=== PATIENT | female | born 1990 | race Caucasian/White ===

== ENCOUNTER 2019-09-26 15:34 | Emergency (ER) | payer BC, SELFPAY ==
--- NOTE | ~2019-09-26 | CT_ITS ---
EXAMINATION: CTA brain carotid DATE: 09/26/2019 16:54 INDICATION: Dizziness and left-sided headache TECHNIQUE: Computed tomographic angiography (CTA) of the head was performed without and with 100 mL O mnipaque-350 intravenous contrast. CTA of the neck was performed with intravenous contrast. The dose- length product was 1786.38 mGy-cm. Maximum intensity projection and volume rendered 3D-reconstruction s were created by the technologist on a separate workstation. Automated exposure control and iterativ e reconstruction technique were employed. COMPARISON: None. FINDINGS: HEAD CTA: There is no intracranial hemorrhage, acute infarction, or abnormal mass lesion. The ventric les are normal. There is no abnormal mass effect or midline shift. The woods-white matter differentiat ion is normal. The basal cisterns are patent. The orbits are normal. The paranasal sinuses, mastoids and calvarium are normal. There is no significant stenosis of the basilar artery or posterior cerebral arteries. There is no si gnificant stenosis of the intracranial internal carotid arteries or the anterior or middle cerebral a rteries. The anterior communicating artery and posterior communicating arteries are normal. There is no aneurysm. NECK CTA: There are no pathologically enlarged neck lymph nodes. No abnormal enhancement is present i n the neck. There is straightening of the cervical spine which can be positional or due to muscular s pasm. There are mild age-indeterminate compression fractures of T1, T2, and T3. There is 0% stenosis of the proximal right internal carotid artery relative to normal distal artery l umen diameter (NASCET criteria). There is 0% stenosis of the proximal left internal carotid artery re lative to normal distal artery lumen diameter. IMPRESSION: 1. No acute intracranial abnormality. Normal head CTA. 2. 0% stenosis of the proximal right internal carotid artery relative to normal distal artery lumen d iameter (NASCET criteria). 3. 0% stenosis of the proximal left internal carotid artery relative to normal distal artery lumen di ameter. 4. Mild age-indeterminate compression deformities of the upper thoracic spine. Reviewed, dictated and finalized at location A. NESS SYSTEM MANAGER IMPRESSION: 1. No acute intracranial abnormality. Normal head CTA. 2. 0% stenosis of the proximal right internal carotid artery relative to normal distal artery lumen diameter (NASCET criteria). 3. 0% stenosis of the proximal left internal carotid artery relative to normal distal artery lumen diameter. 4. Mild age-indeterminate compression deformities of the upper thoracic spine.
[2019-09-26 15:37] VITALS: BP 136/87; PULSE 82; RESP 20; TEMP 36.3; O2SAT 98
[2019-09-26 16:27] LABS: Basophils Absolute Auto 0.1 K/mm3 (0.0-0.1); Basophils Percent Auto 0.6 % (0.2-1.2); Eosinophils Absolute Auto 0.3 K/mm3 (0-0.3); Eosinophils Percent Auto 2.8 % (0-4.4); Hemoglobin 13.3 g/dL (12.0-15.0); Immature Granulocyte Absolute 0.07 K/mm3 (0.00-0.031); Immature Granulocyte Percent A 0.7 % (0-0.5); Lymphocytes Absolute Auto 2.38 K/mm3 (0.9-3.2); Lymphocytes Percent Auto 24.6 % (18.3-44.2); Mean Corpuscular HGB Conc 32.4 g/dl (32-36); Mean Corpuscular Hemoglobin 30.2 pg (26-34); Mean Corpuscular Volume 93.2 fl (80-100); Mean Platelet Volume 10.1 fl (7.4-10.4); Monocytes Absolute Auto 0.5 K/mm3 (0.1-0.6); Monocytes Percent Auto 5.5 % (2.6-8.5); Neutrophils Absolute Auto 6.4 K/mm3 (1.3-6.7); Neutrophils Percent Auto 65.8 % (45.5-73.1); Platelet Count Result 258 k/mm3 (150-375); Red Cell Distribution Width 13.9 % (11.5-14.5); White Blood Count 9.7 K/mm3 (4.5-10.0)
[2019-09-26 16:36] LABS: INR 0.9; Prothrombin Time 11.6 Seconds (11.1-14.7)
[2019-09-26 16:37] LABS: Partial Thromboplastin Time 28.1 SECONDS (22.3-36.8)
[2019-09-26 16:40] LABS: Add Urine Microscopic? YES; Appearance Urine Cloudy (Clear); Bacteria Urine Trace /hpf; Bilirubin Urine Negative (Negative); Blood Urine Negative (Negative); Color Urine Yellow (Yellow); Glucose Urine UA Negative (Negative); Ketones Urine Negative (Negative); Leukocyte Esterase Ur 1+ LEU/UL (Negative); Mucus Urine Rare /lpf; Nitrate Urine Negative (Negative); Protein Urine Negative (Negative); RBC Urine 0-2 /hpf (0-2); Specific Grav Ur 1.011 (1.001-1.035); Squamous Epithelial Cell Urine Many /hpf (Few); Urobilinogen Urine Negative mg/dL (<2.0); WBC Urine 0-3 /hpf
[2019-09-26 16:44] LABS: Blood Urea Nitrogen 9 mg/dL (8-26); Estimated CRCL calculation 150 ml/min; Estimated Glomerular Filt Rate > 60
--- NOTE | 2019-09-26 16:49 | ED.GENADULT ---
HPI - General Adult General Chief complaint: Headache <LEOBARDO James Last Filed: 09/26/19 17:33> Stated complaint: MIGRAINE <LEOBARDO James Last Filed: 09/26/19 17:33> Time Seen by Provider: 09/26/19 15:57 <LEOBARDO James Last Filed: 09/26/19 17:33> Source: patient <LEOBARDO James Last Filed: 09/26/19 17:33> Mode of arrival: ambulatory <LEOBARDO James Last Filed: 09/26/19 17:33> Limitations: no limitations <LEOBARDO James Last Filed: 09/26/19 17:33> History of Present Illness HPI narrative: Patient is a 29-year-old female who presents to emergency department for evaluation of headache that is bitemporal is been present for the last several days notes that this headache is different than other headaches patient has had headaches since an accident this is different woke the patient from her sleep has been dizzy as well with nausea denies URI symptoms injury or trauma and is otherwise resting comfortably in the room upon arrival in no distress presents per private vehicle is attempted [id number] medications with minimal improvement <LEOBARDO James Last Filed: 09/26/19 17:33> Related Data Allergies/adverse reactions: Allergies Allergy/AdvReac Type Severity Reaction Status Date / Time Penicillins Allergy Severe Anaphylaxis Verified 07/26/19 22:11 <LEOBARDO James Last Filed: 09/26/19 17:33> Review of Systems Review of Systems: Narrative: CONSTITUTIONAL: Denies fever, chills, or sweats. EYES: Denies redness, or discharge. ENT: Denies rhinorrhea, congestion, sore throat, or otalgia. CARDIOVASCULAR: Denies chest pain, palpitations RESPIRATORY: Denies cough or dyspnea. GASTROINTESTINAL: Denies abdominal pain, vomiting, or diarrhea. GENITOURINARY: Denies dysuria or hematuria. SKIN: Denies rash or itching. MUSCULOSKELETAL: Denies back pain, joint pain, or myalgia. NEUROLOGIC: Denies numbness, or weakness. <LEOBARDO James Last Filed: 09/26/19 17:33> PMF Past Medical History Medical History: Medical History Asthma Tobacco dependence <Doyle Chung PA-C - Last Filed: 09/26/19 17:33> Surgical History Surgical History: Surgical History Status post debridement Right inner thigh 1 year ago <Doyle Chung PA-C - Last Filed: 09/26/19 17:33> Social History Social History: Social History Social History: The patient lives in [place] with her fianc?, Payton Fox. She designates Payton as her surrogate decision-maker and she wishes to be a full code. Zuleima works at a [employer]. She has no children. She has smoked half a pack of cigarettes per day for about 10 years. She denies alcohol and drug abuse. Smoking packs per day: 0.5 Smoking cigarettes per day: 10.0 Years smoked: 10 Smoking pack-years: 5.00 Smoking status: Current every day smoker Tobacco type: cigarettes Alcohol intake: never Substance use: never Additional living arrangements comments: Domestic partner Additional occupation/education comments: [employer] Gender identity (if verbalized by the patient): Female Spiritual care concerns: No Agree to blood products: Yes <Doyle Chung PA-C - Last Filed: 09/26/19 17:33> Exam Narrative: Exam Narrative: GENERAL: Well-appearing, obese, and in no acute distress. HEAD: Normocephalic, atraumatic. EYES: PERRLA and EOMI. ENT: Nares clear, no rhinorrhea or epistaxis. Mucous membranes moist. Oropharynx without tonsillar hypertrophy exudate or other lesions. NECK: Supple. No adenopathy or masses. CHEST: Clear to auscultation. No respiratory distress. No wheezes rales or rhonchi HEART: Regular rate and rhythm. No murmur heard. Normal peripher
[2019-09-26 16:50] LABS: Amphetamine Screen Urine Negative (Negative); Barbiturate Screen Urine Negative (Negative); Benzodiazepines Screen Urine Negative (Negative); Cannabinoid Screen Urine Negative (Negative); Cocaine Screen Urine Negative (Negative); Methadone Screen Urine Negative (Negative); Opiate Screen Urine Negative (Negative); Phencyclidine Screen Urine Negative (Negative)
[2019-09-26] MEDS: METOCLOPRAMIDE HCL INJ 10 MG/2 ML VIAL IV PUSH (17:00)
[2019-09-26] MEDS: SODIUM CHLORIDE 0.9% IV 500 ML 999 ML IV CONT (17:00)
[2019-09-26] MEDS: FAMOTIDINE 20 MG/2 ML VIAL IV PUSH (17:00)
[2019-09-26] MEDS: KETOROLAC 30 MG/ML VIAL (*BKC) IV PUSH (17:00)
[2019-09-26] MEDS: MAGNESIUM SULF 2 GM/WATER 50ML 2 GM/50 ML BAG IVPB (17:06)
[2019-09-26 17:42] LABS: Blood Urea Nitrogen 8 mg/dL (7-17); Calcium 8.3 mg/dL (8.4-10.2); Carbon Dioxide 25 mmol/L (22-30); Chloride 104 mmol/L (98-107); Estimated CRCL calculation 177 ml/min; Estimated Glomerular Filt Rate > 60; Glucose 106 mg/dL (65-105); Potassium 3.8 mmol/L (3.4-5.0); Sodium 137 mmol/L (137-145)
[2019-09-26 17:56] VITALS: BP 129/86; PULSE 89; RESP 19; O2SAT 98
== END 2019-09-26 17:57 | disposition home or self-care (01) ==
PROVIDERS: Emergency Medicine Emergency Medical Services; Emergency Provider General Practice
DX: R51 Headache (principal); J45.909 Unspecified asthma, uncomplicated; F17.210 Nicotine dependence, cigarettes, uncomplicated
CPT/HCPCS: 36415; 70496; 70498; 80048; 80307; 81001; 81025; 85025; 85610; 85730; 96365; 96375; 99284; J1885; J2765; J3475; J7040; Q9967

== ENCOUNTER 2019-10-24 18:45 | Inpatient (IN) | payer BC, SELFPAY ==
--- NOTE | ~2019-10-24 | US_ITS ---
US venous doppler [facility] DATE: 10/25/2019 09:57 INDICATION: Right calf pain. Right lower extremity cellulitis. TECHNIQUE: Real-time and color flow imaging and Doppler analysis of the veins of the right lower extr emity COMPARISON: None FINDINGS: The right greater saphenous vein is patent. There is spontaneous and phasic flow and normal augmentation and color flow signal and normal compression of the deep veins of the right lower extre mity. IMPRESSION: No evidence of deep venous thrombosis of right lower extremity Reviewed, dictated and finalized at Location A. Reviewed, dictated and finalized at location A.
--- NOTE | ~2019-10-24 | XR_ITS ---
XR chest 2V DATE: 10/24/2019 20:25 INDICATION: Fever, sepsis TECHNIQUE: PA and lateral views COMPARISON: 02/20/2015 PA and lateral chest FINDINGS: Normal heart size. No hilar or mediastinal enlargement. No pulmonary infiltrate or consolid ation, pleural effusion or pulmonary vascular congestion or pneumothorax. Included skeletal structure s are unremarkable. IMPRESSION: Negative Reviewed, dictated and finalized at location A. IMPRESSION: Negative
[2019-10-24 18:56] VITALS: BP 141/82; PULSE 117; RESP 30; TEMP 37.4; O2SAT 100
--- NOTE | 2019-10-24 19:13 | ED_ITS ---
I attest that this documentation has been prepared under the direction and in the presence of Britany Pearson MD. Kyle FosterKristie 10/24/19;19:19 HPI - Extremity Injury (Lower) General Chief Complaint: Extremity Problem,Nontraumatic Stated Complaint: R LEG INFECTION, HX OF SEPSIS Time Seen by Provider: 10/24/19 19:09 History of Present Illness HPI Narrative: A 29 y/o female presents the ED with severe, burning, RLE pain beginning at 3:30 PM this afternoon. She states that she has a hx of BERGMAN, ear ache, rt hip pain, fever, chills, nausea, sweats, rash third time happening started 3:30 PM today last time was 2 months ago sepsis was admitted for 7 days no leg swelling, vomiting, SOB smokes 4 cigs a day healthy, surgery on RLE tachy, erythema from just aboe the ankle splotchy tender warm to mid thigh Related Data Allergies Allergy/AdvReac Type Severity Reaction Status Date / Time Penicillins Allergy Severe Anaphylaxis Verified 07/26/19 22:11 [facility] Social History Social History Social History: The patient lives in [place] with her fianc?, Payton Fox. She designates Payton as her surrogate decision-maker and she wishes to be a full code. Zuleima works at a [employer]. She has no children. She has smoked half a pack of cigarettes per day for about 10 years. She denies alcohol and drug abuse. Smoking packs per day: 0.5 Smoking cigarettes per day: 10.0 Years smoked: 10 Smoking pack-years: 5.00 Smoking status: Current every day smoker Tobacco type: cigarettes Alcohol intake: never Substance use: never Additional living arrangements comments: Domestic partner Additional occupation/education comments: [employer] Gender identity (if verbalized by the patient): Female Spiritual care concerns: No Agree to blood products: Yes Course Vital Signs Vital signs: Vital Signs Temperature 99.4 F 10/24/19 18:56 Pulse Rate 117 H 10/24/19 18:56 Respiratory Rate 30 H 10/24/19 18:56 Blood Pressure 141/82 H 10/24/19 18:56 Pulse Oximetry 100 10/24/19 18:56 Temperature 99.4 F 10/24/19 18:56 Pulse Rate 117 H 10/24/19 18:56 Respiratory Rate 30 H 10/24/19 18:56 Blood Pressure 141/82 H 10/24/19 18:56 Pulse Oximetry 100 10/24/19 18:56 Discharge Plan Discharge Prescriptions: No Action ibuprofen [IBU] 600 mg tablet 600 mg PO TID PRN (Reason: fever or pain) Qty: 7 RF: 0 ondansetron 4 mg tablet,disintegrating 4 mg PO Q6H PRN (Reason: nausea and vomiting) Qty: 7 RF: 0
--- NOTE | 2019-10-24 19:21 | ED.EXTPRO ---
HPI - Extremity Problem General Chief complaint: Extremity Problem,Nontraumatic Stated complaint: R LEG INFECTION, HX OF SEPSIS Time Seen by Provider: 10/24/19 19:09 Source: patient and RN notes reviewed Mode of arrival: ambulatory Limitations: no limitations History of Present Illness HPI Narrative: A 29 y/o female presents the ED with severe, constant, burning, RLE pain beginning at 3:30 PM this afternoon. She states that she has a hx of cellulites in her RLE that has caused sepsis, which she was admitted for roughly 2 months ago. She reports an associated RLE rash, BERGMAN, ear ache, rt hip pain, a subjective fever, chills, nausea, and sweats. She denies any leg swelling, vomiting, and SOB. MD Complaint: extremity pain Onset (ago): hour(s) (3.5) Pain Consistency: constant Location: right and lower extremity Quality: burning Associated symptoms: fever (subjective), rash and other (BERGMAN, ear ache, rt hip pain, chills, nausea, and sweats) Related Data Allergies Allergy/AdvReac Type Severity Reaction Status Date / Time Penicillins Allergy Severe Anaphylaxis Verified 10/24/19 20:46 Review of Systems Review of Systems: All systems reviewed & are unremarkable except as noted in HPI and below Constitutional: Constitutional: Reports chills, Reports fever(s) (subjective) and Reports other (sweats) ENT: Reports otalgia Cardiovascular: Cardiovascular: Denies leg edema Respiratory: Respiratory: Denies dyspnea Gastrointestinal: Gastrointestinal: Reports nausea and Denies vomiting Musculoskeletal: Musculoskeletal: Reports arthralgias (rt hip) and Reports other (RLE pain) Integumentary/Breasts: Skin/Breast: Reports rash Neurologic: Reports headache(s) [facility] Past Medical History Medical History Asthma Tobacco dependence Surgical History Surgical History Status post debridement Right inner thigh 1 year ago Family History Family History Mother Hypertension Social History Social History (Updated 10/24/19 @ 19:38 by Kyle Foster) Social History: The patient lives in [place] with her fianc?, Payton Fox. She designates Payton as her surrogate decision-maker and she wishes to be a full code. Zuleima works at a local [employer]. She has no children. She has smoked half a pack of cigarettes per day for about 10 years. She denies alcohol and drug abuse. Years smoked: 10 Smoking status: Current every day smoker Tobacco type: cigarettes Alcohol intake: never Substance use: never Additional living arrangements comments: Domestic partner Additional occupation/education comments: [employer] Gender identity (if verbalized by the patient): Female Spiritual care concerns: No Agree to blood products: Yes Exam Const: General: cooperative, no acute distress and alert Nutritional Appearance: obese Orientation/consciousness: patient oriented x3 Limitations: no limitations HENMT: Mouth: Yes lip normal and Yes moist mucous membranes Resp: Effort & Inspection: normal respiratory effort Auscultation: clear to auscultation bilaterally Cardio: Rate: tachycardic Rhythm: regular rhythm GI: GI Palp: Yes Soft to palpation and No Tenderness to palpation present (GI) Auscultation: normal bowel sounds Skin: General skin exam: other (erythema from just above the ankle splotchy tender warm to mid thigh) Neuro: General: patient oriented x3 Cognition (Neuro): normal cognition Speech: normal speech Extrem: General: normal to inspection, full ROM and no clubbing, cyanosis or edema Psych: Mental Status: mental status grossly normal Affect: normal affect Attitude: cooperative Course Course Emergency Course: Patient with findings of sepsis secondary to right lower extremity cellulitis. Patient with 2 prior hospitalizations for the same in the past year. Patient had been seen by
[2019-10-24] MEDS: LACTATED RINGERS 1,000 ML 999 ML IV CONT (20:00)
[2019-10-24 20:12] LABS: Hematocrit 41.1 % (37.0-47.0); Hemoglobin 13.1 g/dL (12.0-15.0); Mean Corpuscular HGB Conc 31.9 g/dl (32-36); Mean Corpuscular Volume 94.1 fl (80-100); Mean Platelet Volume 10.1 fl (7.4-10.4); Platelet Count Result 236 k/mm3 (150-375); Red Blood Count 4.37 M/mm3 (4.2-5.4); Red Cell Distribution Width 14.3 % (11.5-14.5); White Blood Count 22.7 K/mm3 (4.5-10.0)
[2019-10-24 20:18] LABS: Add Urine Microscopic? YES; Appearance Urine Clear (Clear); Bacteria Urine Trace /hpf; Bilirubin Urine Negative (Negative); Blood Urine 3+ (Negative); Color Urine Yellow (Yellow); Glucose Urine UA Negative (Negative); Ketones Urine Negative (Negative); Leukocyte Esterase Ur Negative LEU/UL (Negative); Nitrate Urine Negative (Negative); Protein Urine Negative (Negative); Specific Grav Ur 1.015 (1.001-1.035); Squamous Epithelial Cell Urine Many /hpf (Few); Urobilinogen Urine Negative mg/dL (<2.0); WBC Urine 0-3 /hpf
[2019-10-24 20:19] VITALS: BP 128/73; PULSE 106; RESP 22; TEMP 39.3; O2SAT 100
[2019-10-24 20:21] LABS: INR 0.9; Prothrombin Time 12.1 Seconds (11.1-14.7)
[2019-10-24 20:24] LABS: Lactic Acid Reflex 1.3 mmol/L (0.7-2.1)
[2019-10-24 20:28] LABS: Alanine Aminotransferase 25 U/L (4-35); Alkaline Phosphatase 65 U/L (38-126); Aspartate Amino Transferase 27 U/L (14-36); Band Neutrophils Percent 10 % (0-6); Bilirubin,Total 0.5 mg/dL (0.2-1.3); Blood Urea Nitrogen 12 mg/dL (7-17); CRP 2.3 mg/dL (<1.0); Carbon Dioxide 26 mmol/L (22-30); Chloride 100 mmol/L (98-107); Estimated Glomerular Filt Rate > 60; Glucose 111 mg/dL (65-105); Lymphocytes Absolute Manual 0.68 K/mm3 (1.1-4.5); Monocytes Absolute Manual 1.13 K/mm3 (0.1-0.90); Monocytes Percent Manual 5 % (3-9); Neutrophils Absolute Manual 20.88 K/mm3 (1.7-7.2); Neutrophils Percent Manual 82 % (46-73); Platelet Estimate Adequate (Adequate); Potassium 4.2 mmol/L (3.4-5.0); Sodium 134 mmol/L (137-145); Total Cells Counted 100
[2019-10-24] MEDS: KETOROLAC 30 MG/ML VIAL (*BKC) IV PUSH (20:41)
[2019-10-24] MEDS: ACETAMINOPHEN 500 MG TABLET 1000 MG PO (20:41)
--- NOTE | 2019-10-24 21:02 | PC.NURSE ---
pts mother on phone. pt states mother is raging alcoholic asked pt what RN can communicate w/ mother. pt states not to talk to her. rn asked if she can inform her that we cannot transfer her w/ out pt's consent. pt verbalized that rn can say that. pt also told RN to tell her mother to Shut her mouth. Rn spoke w/ pts mothers told her that we cannot transfer pt to [facility] without patients consent and she can talk w/ her daughter about any other questions.
[2019-10-24 21:06] VITALS: BP 122/88; PULSE 120; RESP 16; TEMP 37.5; O2SAT 97
--- NOTE | 2019-10-24 21:24 | PM.IMHP ---
H&P: HPI History of Present Illness Chief complaint: Sepsis, RLE Cellulitis Narrative: A 29 year old female who has a history significant for recurrent cellulitis of her right lower extremity and presented to the hospital tonight with redness and pain of her RLE that started around 3:30 pm this afternoon. She denies any trauma or other wounds to her RLE. She has a history of a right proximal thigh wound which she obtained due to an accident which healed about 1 year ago and required a wound vac at that time. Associated symptoms tonight include nausea, fever, headache, body aches and loose stools. She denies any significant cough but she has had mild shortness of breath. She has no history of MRSA. The patient's RLE redness extends from her right ankle up to her knee and then up her proximal thigh over her previous wound. The patient denies any history of diabetes mellitus. She was found to be septic in the ER tonight with tachycardia, tachypnea, leukocytosis and fever. The patient has been started on Ancef IV in the ER tonight. She has no other complaints. Review of Systems Review of Systems: All systems reviewed & are unremarkable except as noted in HPI and below PMFSH Past Medical History Medical History Asthma Tobacco dependence Surgical History Surgical History Status post debridement Right inner thigh 1 year ago Family History Family History Mother Hypertension Social History Social History Social History: The patient lives in [place] with her fianc?, Payton Fox. She designates Payton as her surrogate decision-maker and she wishes to be a full code. Zuleima works at a local [employer]. She has no children. She has smoked half a pack of cigarettes per day for about 10 years. She denies alcohol and drug abuse. Years smoked: 10 Smoking status: Current every day smoker Tobacco type: cigarettes Alcohol intake: never Substance use: never Substance use type: does not use Additional living arrangements comments: Domestic partner Additional occupation/education comments: [employer] Gender identity (if verbalized by the patient): Female Spiritual care concerns: No Agree to blood products: Yes Meds Home Medications and Allergies Home Medications Medication Instructions Recorded Confirmed Type ibuprofen [IBU] 600 mg PO TID PRN #7 tablet 09/26/19 10/24/19 Rx Allergies Allergy/AdvReac Type Severity Reaction Status Date / Time Penicillins Allergy Severe Anaphylaxis Verified 10/24/19 20:46 Vital Signs Vital Signs - 24 hr 10/24/19 18:56 10/24/19 20:19 10/24/19 21:06 Temperature 37.4 C 39.3 C H 37.5 C Pulse Rate 117 H 106 H 120 H Respiratory Rate 30 H 22 H 16 Blood Pressure 141/82 H 128/73 122/88 Pulse Oximetry 100 100 97 Exam Const: General: cooperative, alert, awake and other (febrile to touch+++ ) Nutritional Appearance: obese morbidly obese Orientation/consciousness: patient oriented x3 HENMT: Head: normal to inspection General nose exam: Normal external nose present Face and sinus: normal facial exam Mouth: Yes Normal oral and palatal mucosa present and Yes oropharynx normal Eyes: Pupils: Equal, round and reactive pupils present EOM: EOMs intact bilaterally Neck: Neck: supple and no JVD Thyroid: thyroid normal Lymphatic: lymphadenopathy not noted Resp: Effort & Inspection: normal respiratory effort Auscultation: clear to auscultation bilaterally Cardio: Rate: tachycardic Rhythm: regular rhythm Heart sounds: no murmurs GI: Inspection: normal to inspection Auscultation: normal bowel sounds Skin: General skin exam: erythema (extending from right ankle up to her knee and the proximal aspect of thigh+) and scars (Right medial thigh
[2019-10-24] MEDS: MORPHINE SULFATE 2 MG/ML INJ IV PUSH (21:28)
[2019-10-24 21:30] VITALS: BP 129/77; PULSE 107; RESP 19; TEMP 37.4; O2SAT 98
--- NOTE | 2019-10-24 21:42 | ADMGEN ---
This patient, Angelika Hendricks, was admitted to 2 Medical Room 241-. Patient/family oriented to hospital policies and general routines including ID bracelet, bed and alarms, visiting hours, pain management, procedures, bathroom and other care routines, personal items, smoking policy, room service/diet, and visiting hours. Valuables list has been completed. Information on how to activate the Rapid Response Team has been discussed. Patient/Family are encouraged to report perceived risks to care and to ask questions if they do not understand what they are told or what they should do.
[2019-10-24] MEDS: LACTATED RINGERS 1,000 ML 150 ML IV CONT (21:51)
[2019-10-24 22:00] VITALS: BP 117/56; PULSE 98; RESP 20; TEMP 36.2; O2SAT 97; BMI 51.7
[2019-10-25] MEDS: LACTATED RINGERS 1,000 ML 150 ML IV CONT ×3 (04:38→19:44)
[2019-10-25] MEDS: IBUPROFEN 400 MG TABLET PO (05:23)
[2019-10-25 05:26] LABS: Basophils Percent Auto 0.2 % (0.2-1.2); Eosinophils Percent Auto 0.1 % (0-4.4); Hematocrit 37.4 % (37.0-47.0); Hemoglobin 11.9 g/dL (12.0-15.0); Immature Granulocyte Absolute 0.14 K/mm3 (0.00-0.031); Immature Granulocyte Percent A 0.7 % (0-0.5); Lymphocytes Absolute Auto 0.96 K/mm3 (0.9-3.2); Lymphocytes Percent Auto 5.1 % (18.3-44.2); Mean Corpuscular HGB Conc 31.8 g/dl (32-36); Mean Corpuscular Hemoglobin 30.4 pg (26-34); Mean Corpuscular Volume 95.4 fl (80-100); Mean Platelet Volume 10.3 fl (7.4-10.4); Monocytes Absolute Auto 0.6 K/mm3 (0.1-0.6); Monocytes Percent Auto 3.3 % (2.6-8.5); Neutrophils Percent Auto 90.6 % (45.5-73.1); Platelet Count Result 194 k/mm3 (150-375); Red Blood Count 3.92 M/mm3 (4.2-5.4); Red Cell Distribution Width 14.6 % (11.5-14.5); White Blood Count 18.8 K/mm3 (4.5-10.0)
[2019-10-25 05:47] LABS: Blood Urea Nitrogen 16 mg/dL (7-17); Calcium 8.5 mg/dL (8.4-10.2); Carbon Dioxide 28 mmol/L (22-30); Chloride 104 mmol/L (98-107); Estimated CRCL calculation 151 ml/min; Estimated Glomerular Filt Rate > 60; Glucose 103 mg/dL (65-105); Potassium 3.7 mmol/L (3.4-5.0); Sodium 134 mmol/L (137-145)
[2019-10-25 06:00] VITALS: BP 119/59; PULSE 90; RESP 20; TEMP 36.3; O2SAT 98
[2019-10-25 07:18] LABS: Hemoglobin A1C 5.1 % (<5.7)
--- NOTE | 2019-10-25 08:22 | PC.NURSE ---
Acting on Dr. Swenson's order. Pain medication was administered at 0708. Order before medication could be saved into emar.
--- NOTE | 2019-10-25 09:00 | PM.IMPN ---
Progress Note: A&P Assessment and Plan (1) Cellulitis of right leg: Code(s): L03.115 - Cellulitis of right lower limb Status: Acute Assessment and Plan: Patient has recurrent right LE cellulitis. Non-diabetic as A1c 5.1 today. ID consulted and appreciate recommendations. Area of concern slightly extending outside area of demarcation in few areas, otherwise seems to be contained within the area. VSS improving this morning. WBC down to 18.8k today. Continue with antipyretics and antiemetics as needed Continue with IV ancef for now IVF at 150 mL/hr for now; consider slowing Further recommendations per ID Venous doppler to r/o DVT today; still yet to be done BC pending Monitor for improvement (2) Sepsis: Qualifiers: Sepsis acute organ dysfunction status: without acute organ dysfunction Sepsis type: sepsis due to unspecified organism Qualified Code(s): A41.9 - Sepsis, unspecified organism Code(s): A41.9 - Sepsis, unspecified organism Status: Acute Assessment and Plan: w/ Tachycardia, tachypnea, fever, and leukocytosis upon presentation. Source of sepsis appears to be skin. VSS, leukocytosis, fever improving. Monitor vital signs and urine output closely. Blood cultures pending. Continue IV antibiotics for Cellulitis (3) Leukocytosis: Qualifiers: Leukocytosis type: unspecified Qualified Code(s): D72.829 - Elevated white blood cell count, unspecified Code(s): D72.829 - Elevated white blood cell count, unspecified Status: Acute Assessment and Plan: secondary to sepsis and cellulitis. This has improved overnight Monitor CBCd. (4) Tobacco dependence: Code(s): F17.200 - Nicotine dependence, unspecified, uncomplicated Status: Chronic Assessment and Plan: She does not desire a nicotine patch at this time. Provide nicotine patch if desired Subjective Date/time seen: 10/25/19 09:00 Interval history: Patient is a 29 yo F with history of recurrent cellulitis of her right lower extremity who is here for treatment for sepsis with cellulitis as likely source of infection. Patient states she is still in some right upper/lower leg pain today particularly when ambulating. She feels her calf is tight from swelling. She had sweats last night; possible subjective fever. She noted her right ankle hurt 1-2 days prior to coming into the hospital, but this has resolved; no redness/swelling in the right ankle joint. Patient otherwise has no other complaints. Denies headaches, dizziness, lightheadedness, changes in v/h, cp/palpitations, sob/cough, n/v/d/c, abd pain, dysphagia, melena, brbpr, dysuria, hematuria, cloudy urine. Review of Systems Review of Systems: All systems reviewed & are unremarkable except as noted in HPI and below Exam Narrative: Exam Narrative: Patient sitting upright in bed a time of visit. SO is in room visiting Const: General: cooperative, comfortable, no acute distress, well developed, alert and awake Nutritional Appearance: obese morbidly obese Orientation/consciousness: patient oriented x3 HENMT: Head: normocephalic and atraumatic General nose exam: Normal external nose present and Normal nares present Face and sinus: face symmetric Mouth: Yes lip normal and Yes moist mucous membranes Teeth and gingiva: dentition normal Throat: posterior oropharynx normal and uvula midline Eyes: General: appearance normal, both eyes and all related structures Sclera: sclerae normal Pupils: Equal, round and reactive pupils present EOM: EOMs intact bilaterally Neck: Neck: trachea midline and supple Resp: Effort & Inspection: normal respiratory effort Auscultation: clear to auscultation bilaterally Cardio: Rate: regular rate Rhythm: regular rhythm Heart sounds: no mur
[2019-10-25] MEDS: ENOXAPARIN 40 MG/0.4 ML SYRINGE SUB-Q (09:12)
[2019-10-25 14:00] VITALS: BP 107/72; PULSE 65; RESP 16; TEMP 35.7; O2SAT 100
[2019-10-25 22:00] VITALS: BP 112/67; PULSE 76; RESP 20; TEMP 36; O2SAT 99
[2019-10-26] MEDS: LACTATED RINGERS 1,000 ML 150 ML IV CONT ×2 (03:06→09:29)
[2019-10-26 05:46] LABS: Basophils Percent Auto 0.4 % (0.2-1.2); Eosinophils Absolute Auto 0.3 K/mm3 (0-0.3); Eosinophils Percent Auto 3.9 % (0-4.4); Hematocrit 35.3 % (37.0-47.0); Hemoglobin 11.4 g/dL (12.0-15.0); Immature Granulocyte Absolute 0.08 K/mm3 (0.00-0.031); Lymphocytes Absolute Auto 2.05 K/mm3 (0.9-3.2); Mean Corpuscular HGB Conc 32.3 g/dl (32-36); Mean Corpuscular Hemoglobin 30.3 pg (26-34); Mean Corpuscular Volume 93.9 fl (80-100); Mean Platelet Volume 10.4 fl (7.4-10.4); Monocytes Absolute Auto 0.7 K/mm3 (0.1-0.6); Monocytes Percent Auto 8.9 % (2.6-8.5); Neutrophils Percent Auto 60.8 % (45.5-73.1); Platelet Count Result 186 k/mm3 (150-375); Red Blood Count 3.76 M/mm3 (4.2-5.4); Red Cell Distribution Width 14.4 % (11.5-14.5); White Blood Count 8.2 K/mm3 (4.5-10.0)
[2019-10-26 05:50] LABS: Blood Urea Nitrogen 10 mg/dL (7-17); Calcium 8.1 mg/dL (8.4-10.2); Carbon Dioxide 26 mmol/L (22-30); Chloride 107 mmol/L (98-107); Estimated CRCL calculation 205 ml/min; Estimated Glomerular Filt Rate > 60; Glucose 99 mg/dL (65-105); Magnesium 1.8 mg/dL (1.6-2.3); Potassium 4.1 mmol/L (3.4-5.0); Sodium 136 mmol/L (137-145)
[2019-10-26 06:00] VITALS: BP 111/72; PULSE 68; RESP 20; TEMP 36.3; O2SAT 99
[2019-10-26 08:00] VITALS: PULSE 68; RESP 20; O2SAT 99
[2019-10-26] MEDS: ENOXAPARIN 40 MG/0.4 ML SYRINGE SUB-Q (09:28)
--- NOTE | 2019-10-26 12:49 | PM.IMPN ---
Progress Note: A&P Assessment and Plan (1) Cellulitis of right leg: Code(s): L03.115 - Cellulitis of right lower limb Status: Acute Assessment and Plan: Patient has recurrent right LE cellulitis. Non-diabetic as A1c 5.1 today. ID consulted and appreciate recommendations. VSS stable this morning. WBC down to normal at 8.2 k today. Continue with antipyretics and antiemetics as needed Continue with IV ancef for now Discontinue IV fluids. Further recommendations per ID Venous doppler showed no evidence of deep venous thrombosis of right lower extremity BC pending Monitor for improvement (2) Sepsis: Qualifiers: Sepsis acute organ dysfunction status: without acute organ dysfunction Sepsis type: sepsis due to unspecified organism Qualified Code(s): A41.9 - Sepsis, unspecified organism Code(s): A41.9 - Sepsis, unspecified organism Status: Acute Assessment and Plan: w/ Tachycardia, tachypnea, fever, and leukocytosis upon presentation. Source of sepsis appears to be skin. VS stable, leukocytosis normalized, fever improving. Monitor vital signs and urine output closely. Blood cultures pending. Continue IV antibiotics for Cellulitis (3) Leukocytosis: Qualifiers: Leukocytosis type: unspecified Qualified Code(s): D72.829 - Elevated white blood cell count, unspecified Code(s): D72.829 - Elevated white blood cell count, unspecified Status: Acute Assessment and Plan: Secondary to sepsis and cellulitis. Normalized today. Monitor CBCd. (4) Tobacco dependence: Code(s): F17.200 - Nicotine dependence, unspecified, uncomplicated Status: Chronic Assessment and Plan: She does not desire a nicotine patch at this time. Provide nicotine patch if desired Time Spent With Patient Time with patient: 25 - 35 minutes Subjective Date/time seen: 10/26/19 12:49 Interval history: Patient is a 29 yo F with history of recurrent cellulitis of her right lower extremity who is here for treatment for sepsis with cellulitis as likely source of infection. Date of service 10/26/2019: She is feeling better today. She reports her redness is improved to distal right leg and medial thigh but it is still warm and tender to touch. Denies any fever, chills, chest pain, shortness of breath, cough, nausea, vomiting, abdominal pain, constipation, leg swelling, calf pain or any other symptoms at this time. Review of Systems Review of Systems: All systems reviewed & are unremarkable except as noted in HPI and below Exam Narrative: Exam Narrative: General: 29-year-old woman sitting up in bed watching TV. Appears comfortable. In no acute distress. Skin: See lower extremity. No jaundice or cyanosis. Good skin turgor. Neck: Full range of motion. Supple. Respiratory: Lungs are clear to auscultation bilaterally. No bony chest wall tenderness. Cardiovascular: The heart has a regular rate and rhythm without murmur. Lower extremities: Right anterior distal lower extremity with slight erythema improved from prior pen line on arrival. Right medial thigh with scarring noted with warmth, erythema noted with improved markings from prior pen line on arrival. No lower extremity edema. Distal pulses are easily palpated. No calf tenderness to palpation. Gastrointestinal: The abdomen is soft, nontender and nondistended with active bowel sounds. Psychiatric: Lucid and oriented. Memory intact. Neurologic: No focal deficits. Speech is clear. No facial drooping. Objective Data Vital Signs Vital Signs: Vital Signs - 24 hr 10/25/19 14:00 10/25/19 22:00 10/26/19 06:00 Temperature 96.2 F L 96.8 F L 97.3 F L Pulse Rate 65 76 68 Respiratory Rate 16 20 20 Blood Pressure 107/72 112/67 111/72 Pulse Oximet
[2019-10-26 14:00] VITALS: BP 124/65; PULSE 70; RESP 18; TEMP 36.5; O2SAT 100
--- NOTE | 2019-10-26 17:38 | WPDINFPN2 ---
Progress Note: A&P Assessment and Plan (1) Cellulitis: Qualifiers: Laterality: right Site of cellulitis: extremity Site of cellulitis of extremity: lower extremity Qualified Code(s): L03.115 - Cellulitis of right lower limb Code(s): L03.90 - Cellulitis, unspecified Status: Acute Assessment and Plan: Recurrent cellulitis RLE REC Ancef until AM 10/26, then cephalexin 1 gram q6hr x 8 days. Then she should keep a reserve supply of cephalexin 500 q6hr, #28, to take at the first symptom of recurrent cellulitis. Subjective Date/time seen: 10/26/19 17:38 Objective Data Vital Signs Vital Signs: Vital Signs - 24 hr 10/25/19 22:00 10/26/19 06:00 10/26/19 08:00 Temperature 36.0 C L 36.3 C L Pulse Rate 76 68 68 Respiratory Rate 20 20 20 Blood Pressure 112/67 111/72 Pulse Oximetry 99 99 99 10/26/19 14:00 Temperature 36.5 C Pulse Rate 70 Respiratory Rate 18 Blood Pressure 124/65 Pulse Oximetry 100 Intake/Output Intake/Output: Intake & Output 10/23/19 10/24/19 10/25/19 10/26/19 23:59 23:59 23:59 23:59 Intake Total 1050 5250 3820 Output Total 704 1800 Balance 1050 4546 2020 Meds/Results Medications: Active Medications Generic Name Dose Route Start Last Admin Trade Name Freq PRN Reason Stop Dose Admin Acetaminophen 1,000 mg 10/25/19 09:05 Tylenol Tablet PO Q6H PRN Pain Rated 4-6 Acetaminophen 650 mg 10/25/19 09:05 Tylenol Tablet PO Q6H PRN Pain Rated 1-3 Hydrocodone Bitart/Acetaminophen 1 tab 10/25/19 09:02 10/26/19 10:08 [place] 5-325 Mg PO 1 tab Q6H PRN Administration Pain Rated 7-10 Enoxaparin Sodium 40 mg 10/25/19 09:00 10/26/19 09:28 Lovenox SUB-Q 40 mg DAILY POONAM Administration Cefazolin Sodium 1 gm in 50 mls @ 100 mls/hr 10/25/19 06:00 10/26/19 14:52 Ancef 1 Gm/D5w 50 Ml Pm IVPB Infused Q8HR POONAM Infusion Radiology Results: ITS Impressions Chest X-Ray 10/24/19 20:35 IMPRESSION: Negative Venous Doppler Study 10/25/19 10:41 IMPRESSION: No evidence of deep venous thrombosis of right lower extremity Labs Labs: Laboratory Results - last 24 hr 10/26/19 10/26/19 04:50 04:50 WBC 8.2 RBC 3.76 L Hgb 11.4 L Hct 35.3 L MCV 93.9 MCH 30.3 MCHC 32.3 RDW 14.4 Plt Count 186 MPV 10.4 Immature Gran % (Auto) 1.0 H Neut % (Auto) 60.8 Lymph % (Auto) 25.0 Day % (Auto) 8.9 H Eos % (Auto) 3.9 Baso % (Auto) 0.4 Lymph # (Auto) 2.05 Day # (Auto) 0.7 H Eos # (Auto) 0.3 Baso # (Auto) 0.0 Abs Immat Gran (auto) 0.08 H Absolute Neuts (auto) 5.0 Absolute Nucleated RBC 0.0 Nucleated RBC % 0.0 Sodium 136 L Potassium 4.1 Chloride 107 Carbon Dioxide 26 BUN 10 D Creatinine 0.50 L Estim Creat Clear Calc 205 Estimated GFR > 60 Glucose 99 Calcium 8.1 L Magnesium 1.8
--- NOTE | 2019-10-26 18:46 | CONS_ITS ---
DATE OF CONSULTATION: 10/26/2019 REASON FOR CONSULTATION: Right leg cellulitis. HISTORY OF PRESENT ILLNESS: The patient is a 29-year-old female known to me from July when she had right leg cellulitis. She was treated accordingly with success. She has had no intervening episodes until the day of admission when she developed recurrent pain and redness in the mid right buchanan without any trauma. Within 20 minutes, the redness began to spread up the leg, into the thigh and she had hip pain concurrently. She presented to the emergency room and was admitted on the . She has been on Ancef and consultation requested. The patient has had full resolution in hip pain, leg pain and redness are also much improved subjectively. No recent antibiotics otherwise. ALLERGIES: PENICILLIN CAUSES ANAPHYLAXIS. SHE TOLERATES CEPHALEXIN. HABITS: Half narc-eve-qwc smoker. PRESENT MEDICATIONS: No immunosuppressants. PAST MEDICAL HISTORY: She has had previous right thigh debridement surgery. She has morbid obesity. No other chronic medical illnesses. FAMILY HISTORY: Not pertinent to her present illness. SOCIAL HISTORY: Works at [employer]. She is in a same sex relationship with her fiancee, and lives locally. REVIEW OF SYSTEMS: Respiratory, skin, musculoskeletal, constitutional, GI otherwise negative. PHYSICAL EXAMINATION: GENERAL: This is a young female appears her actual age. No acute distress. VITAL SIGNS: Temperature is 39.3 on admission, afebrile since, 124/65, 70, 18, 100% room air. SKIN: Warm and dry. EENT: Conjunctivae are normal. Oral mucosa is also normal. LUNGS: Clear to auscultation and percussion. CARDIAC: Regular rate and rhythm. No murmur, gallop, or rub. Pulses are 2+. ABDOMEN: Obese, nontender, nondistended. EXTREMITIES: No upper extremity edema. On the lower extremity, she has erythema that is outlined over the buchanan and a separate area over the thigh. The erythema is nearly resolved. There is no warmth, no tenderness. She has a surgical scar in the right thigh, but no other abnormal contours. LABORATORY DATA: Blood cultures, October 23, no growth after 2 days incubation. previous admission July as well. White blood cell count on admission was 22.7, then 18.8, now 8.2, hemoglobin 11.4, and platelets are 186. Her differential is normal. Chemistry panel normal except for mild hyponatremia. CRP 2.3. Her urinalysis no evidence of infection. RADIOLOGY: Venous Doppler, no DVT. ASSESSMENT: 1. Recurrent right leg cellulitis, suspect streptococcal in nature, she may have some vascular venous insufficiency responsible. Obesity is also contributing. She has no diabetes. 2. Previous debridement surgery. 3. Morbid obesity. RECOMMENDATIONS: Continue Ancef until a.m. and if no new clinical findings and to be switched to cephalexin 1 g q.6 hours x8 additional days. I would then place on a reserve supply of cephalexin 500 mg every 6 hours to take at the first symptom of recurrent infection. This would be an attempt to decrease need for hospitalizations and emergency room visits. We also considered chronic suppression, but I would not use this at present time. Thank you very much for asking me to see her. SHEREEN WHITNEY M.D. [employer] INST[employer]ER TILE AND [employer]BLE INSTALLER D I MT: Kaveh
[2019-10-26 21:55] VITALS: BP 126/81; PULSE 73; RESP 16; TEMP 35.9; O2SAT 100
[2019-10-27 05:37] LABS: Basophils Percent Auto 0.5 % (0.2-1.2); Eosinophils Absolute Auto 0.3 K/mm3 (0-0.3); Eosinophils Percent Auto 3.2 % (0-4.4); Hematocrit 38.2 % (37.0-47.0); Hemoglobin 12.1 g/dL (12.0-15.0); Immature Granulocyte Absolute 0.13 K/mm3 (0.00-0.031); Immature Granulocyte Percent A 1.6 % (0-0.5); Lymphocytes Absolute Auto 2.27 K/mm3 (0.9-3.2); Mean Corpuscular HGB Conc 31.7 g/dl (32-36); Mean Corpuscular Hemoglobin 30.3 pg (26-34); Mean Corpuscular Volume 95.5 fl (80-100); Mean Platelet Volume 10.3 fl (7.4-10.4); Monocytes Absolute Auto 0.6 K/mm3 (0.1-0.6); Monocytes Percent Auto 7.1 % (2.6-8.5); Neutrophils Absolute Auto 4.8 K/mm3 (1.3-6.7); Neutrophils Percent Auto 59.6 % (45.5-73.1); Platelet Count Result 227 k/mm3 (150-375); Red Cell Distribution Width 14.4 % (11.5-14.5); White Blood Count 8.1 K/mm3 (4.5-10.0)
[2019-10-27 05:56] LABS: Blood Urea Nitrogen 11 mg/dL (7-17); Calcium 8.6 mg/dL (8.4-10.2); Carbon Dioxide 28 mmol/L (22-30); Chloride 106 mmol/L (98-107); Estimated CRCL calculation 174 ml/min; Estimated Glomerular Filt Rate > 60; Glucose 100 mg/dL (65-105); Sodium 137 mmol/L (137-145)
[2019-10-27 06:00] VITALS: BP 137/64; PULSE 65; RESP 16; TEMP 35.6; O2SAT 98
[2019-10-27 08:00] VITALS: PULSE 65; RESP 16; O2SAT 98
[2019-10-27] MEDS: ENOXAPARIN 40 MG/0.4 ML SYRINGE SUB-Q (08:49)
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
--- NOTE | 2019-10-30 14:35 | PC.NURSE ---
Blood cx is negative.
== END 2019-10-27 11:27 | disposition home or self-care (01) | DRG 720 ==
LOC: ANHED 21:16 → ANH2MED 21:27
PROVIDERS: Physician Assistant; Admitting Provider Family Medicine; Emergency Provider Emergency Medicine; Visit Provider Physician Assistant
DX: A41.9 Sepsis, unspecified organism (principal); L03.115 Cellulitis of right lower limb; J45.909 Unspecified asthma, uncomplicated; F17.210 Nicotine dependence, cigarettes, uncomplicated; E66.01 Morbid (severe) obesity due to excess calories; Z68.43 Body mass index [BMI] 50.0-59.9, adult
CPT/HCPCS: 36415; 71046; 80048; 80053; 81001; 83036; 83605; 83735; 85025; 85610; 85730; 86140; 87040; 93970; 96365; 96375; 99285; A9270; J0690; J1650; J1885; J2270; J7120

== ENCOUNTER 2019-11-21 07:54 | Emergency (ER) | payer BC, SELFPAY ==
[2019-11-21 08:03] VITALS: BP 143/87; PULSE 96; RESP 18; TEMP 36.7; O2SAT 99
--- NOTE | 2019-11-21 08:14 | ED.EXTPRO ---
HPI - Extremity Problem General Chief complaint: Extremity Problem,Nontraumatic Stated complaint: cellulitis in right leg Time Seen by Provider: 11/21/19 08:08 History of Present Illness HPI Narrative: Painful rash to right lower extremity since yesterday. Started at site of healed traumatic wound to right thigh. Small amount distal to that. Associated with burning pain and aches in the leg. She has had recurrent cellulitis in this leg previously. This is more mild. She has been taking keflex sporadically since the last time she was in the hospital. Related Data Allergies Allergy/AdvReac Type Severity Reaction Status Date / Time Penicillins Allergy Severe Anaphylaxis Verified 11/21/19 08:02 Review of Systems Review of Systems: All systems reviewed & are unremarkable except as noted in HPI and below Constitutional: Constitutional: Denies chills and Denies fever(s) ENT: Denies sore throat Cardiovascular: Cardiovascular: Denies chest pain Respiratory: Respiratory: Denies dyspnea Gastrointestinal: Gastrointestinal: Denies abdominal pain, Denies nausea and Denies vomiting Genitourinary: Genitourinary: Denies dysuria Musculoskeletal: Musculoskeletal: Denies back pain Integumentary/Breasts: Skin/Breast: Denies pruritus, Reports erythema and Reports rash Neurologic: Denies weakness PMFSH Past Medical History Medical History Asthma Recurrent cellulitis of lower extremity Right leg Tobacco dependence Surgical History Surgical History Status post debridement Right inner thigh 1 year ago Family History Family History Mother Hypertension Social History Social History Social History: The patient lives in [place] with her fianc?, Payton Fox. She designates Payton as her surrogate decision-maker and she wishes to be a full code. Zuleima works at a [employer]. She has no children. She has smoked half a pack of cigarettes per day for about 10 years. She denies alcohol and drug abuse. Years smoked: 10 Smoking status: Current every day smoker Tobacco type: cigarettes Alcohol intake: never Substance use: never Substance use type: does not use Additional living arrangements comments: Domestic partner Additional occupation/education comments: [employer] Gender identity (if verbalized by the patient): Female Spiritual care concerns: No Agree to blood products: Yes Exam Const: General: healthy appearing, no acute distress and alert Nutritional Appearance: obese Orientation/consciousness: patient oriented x3 HENMT: Head: normal to inspection Resp: Effort & Inspection: normal respiratory effort Auscultation: clear to auscultation bilaterally Cardio: Rate: regular rate Rhythm: regular rhythm Skin: Other: raised erythematous rash to inferiormedial thigh with satellite lesion just distal to that. Neuro: General: patient oriented x3 and moves all extremities Speech: normal speech Extrem: Other: see skin exam Course Course Emergency Course: Patient discussed with Dr. Brown, who is familiar with her treatment course. He recommends restarting her on keflex QID. Vital Signs Vital signs: Vital Signs Temperature 36.7 C 11/21/19 08:03 Pulse Rate 96 11/21/19 08:03 Respiratory Rate 18 11/21/19 08:03 Blood Pressure 143/87 H 11/21/19 08:03 Pulse Oximetry 99 11/21/19 08:03 Temperature 36.7 C 11/21/19 08:03 Pulse Rate 96 11/21/19 08:03 Respiratory Rate 18 11/21/19 08:03 Blood Pressure 143/87 H 11/21/19 08:03 Pulse Oximetry 99 11/21/19 08:03 MDM - Extremity (Nontraumatic) Differential Diagnosis Differential diagnosis: Likely cellulitis Medical Records Attestation: I reviewed the patient's medical records.
== END 2019-11-21 09:13 | disposition home or self-care (01) ==
PROVIDERS: Emergency Provider Emergency Medicine
DX: L03.115 Cellulitis of right lower limb (principal); J45.909 Unspecified asthma, uncomplicated; F17.210 Nicotine dependence, cigarettes, uncomplicated
CPT/HCPCS: 99283

== ENCOUNTER 2020-08-07 17:31 | Emergency (ER) | payer BC, SELFPAY ==
[2020-08-07 17:38] VITALS: BP 143/105; PULSE 89; RESP 16; TEMP 36.7; O2SAT 98
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
[2020-08-07 19:49] LABS: Basophils Absolute Auto 0.1 K/mm3 (0.0-0.1); Basophils Percent Auto 0.4 % (0.2-1.2); Eosinophils Absolute Auto 0.2 K/mm3 (0-0.3); Eosinophils Percent Auto 1.4 % (0-4.4); Hematocrit 42.5 % (37.0-47.0); Hemoglobin 13.9 g/dL (12.0-15.0); Immature Granulocyte Absolute 0.06 K/mm3 (0.00-0.031); Immature Granulocyte Percent A 0.4 % (0-0.5); Lymphocytes Absolute Auto 2.39 K/mm3 (0.9-3.2); Lymphocytes Percent Auto 17.3 % (18.3-44.2); Mean Corpuscular HGB Conc 32.7 g/dl (32-36); Mean Corpuscular Volume 94.7 fl (80-100); Mean Platelet Volume 9.8 fl (7.4-10.4); Monocytes Absolute Auto 1.1 K/mm3 (0.1-0.6); Monocytes Percent Auto 7.6 % (2.6-8.5); Neutrophils Absolute Auto 10.1 K/mm3 (1.3-6.7); Neutrophils Percent Auto 72.9 % (45.5-73.1); Platelet Count Result 257 k/mm3 (150-375); Red Blood Count 4.49 M/mm3 (4.2-5.4); White Blood Count 13.8 K/mm3 (4.5-10.0)
[2020-08-07 20:01] LABS: D Dimer 0.98 ug/mL (<0.48)
[2020-08-07] MEDS: CEPHALEXIN 500 MG CAPSULE PO (20:39)
--- NOTE | 2020-08-07 20:39 | PHAR ---
PER RN PATIENT HAS BEEN ON CEPHALEXIN PRIOR TO THIS ADMISSION AND HAD NO ADR
[2020-08-07 21:18] VITALS: BP 120/84; PULSE 17; RESP 78; TEMP 36.6; O2SAT 99
== END 2020-08-07 21:19 | disposition home or self-care (01) ==
PROVIDERS: Physician Assistant; Emergency Provider Emergency Medicine
DX: L03.115 Cellulitis of right lower limb (principal); R79.1 Abnormal coagulation profile; J45.909 Unspecified asthma, uncomplicated; F17.210 Nicotine dependence, cigarettes, uncomplicated
CPT/HCPCS: 36415; 85025; 85380; 99283; A9270

== ENCOUNTER 2020-08-13 14:13 | Outpatient (CLI) | payer BC, SELFPAY ==
--- NOTE | ~2020-08-13 | US_ITS ---
EXAMINATION: US venous doppler LE RT DATE: 08/13/2020 15:19 INDICATION: Right lower limb swelling TECHNIQUE: Peñaloza scale images without and with compression and Doppler images of the right lower extre mity veins were obtained. COMPARISON: 10/25/2019 FINDINGS: The right common femoral vein, profunda femoral vein, femoral vein, popliteal vein, peronea l trunk, posterior tibial veins, and greater saphenous vein are patent. IMPRESSION: 1. Patent right lower extremity veins. No evidence of deep venous thrombosis. Reviewed, dictated and finalized at location A. T [employer]KE [employer]SEM[employer]ER
== END 2020-08-13 14:14 | disposition home or self-care (01) ==
PROVIDERS: Visit Provider Family Medicine
DX: M79.89 Other specified soft tissue disorders (principal)
CPT/HCPCS: 93971

== ENCOUNTER 2020-11-20 16:56 | Emergency (ER) | payer BC, SELFPAY ==
--- NOTE | 2020-11-20 17:08 | ED.GENADULT ---
HPI - General Adult General Chief complaint: Ear Stated complaint: ear pain Time Seen by Provider: 11/20/20 17:08 Source: patient Mode of arrival: ambulatory Limitations: no limitations History of Present Illness HPI narrative: 30-year-old female patient presents to the [facility] with complaints of left ear pain for the past week and a half that has been coming and going. Patient states that time it feels clogged but here the last couple of days has been more painful. Patient states she has been taking Tylenol for the pain. Denies any discharge. Denies fevers, body aches or chills. Related Data Allergies Allergy/AdvReac Type Severity Reaction Status Date / Time Penicillins Allergy Severe Anaphylaxis Verified 11/20/20 17:04 Review of Systems Review of Systems: Narrative: CONSTITUTIONAL: Denies fever, chills, or sweats. EYES: Denies visual changes, redness, or discharge. ENT: Denies rhinorrhea, congestion, sore throat, positive left otalgia. CARDIOVASCULAR: Denies chest pain, palpitations, or edema. RESPIRATORY: Denies cough or dyspnea. GASTROINTESTINAL: Denies abdominal pain, nausea, vomiting, or diarrhea. GENITOURINARY: Denies dysuria or hematuria. SKIN: Denies rash or itching. MUSCULOSKELETAL: Denies back pain, joint pain, or myalgia. NEUROLOGIC: Denies headache, numbness, or weakness. PSYCHIATRIC: Denies anxiety or depression. [facility] Past Medical History Medical History (Updated 11/20/20 @ 17:31 by RAHUL Shaver) Asthma Recurrent cellulitis of lower extremity Right leg Tobacco dependence Surgical History Surgical History Status post debridement Right inner thigh 1 year ago Family History Family History Mother Hypertension Social History Social History Social History: The patient lives in [place] with her fianc?, Payton Fox. She designates Payton as her surrogate decision-maker and she wishes to be a full code. Zuleima works at a [employer]. She has no children. She has smoked half a pack of cigarettes per day for about 10 years. She denies alcohol and drug abuse. Years smoked: 10 Smoking status: Current every day smoker Tobacco type: cigarettes Alcohol intake: never Substance use: never Substance use type: does not use Additional living arrangements comments: Domestic partner Additional occupation/education comments: [employer] Gender identity (if verbalized by the patient): Female Spiritual care concerns: No Agree to blood products: Yes Comments At the time of my signature I agree with nursing past medical history, surgical, social, and family history. There is no relevant family history pertinent to the presenting complaint. Exam Narrative: Exam Narrative: GENERAL: Well-appearing, well-nourished, and in no acute distress. HEAD: Normocephalic, atraumatic. EYES: PERRLA and EOMI. ENT: Nares clear, no rhinorrhea or epistaxis. Mucous membranes moist. Patient has cerumen impaction to bilateral ears. Unable to assess bilateral TMs at this time. NECK: Supple. No lymphadenopathy CHEST: Clear to auscultation. No respiratory distress. HEART: Regular rate and rhythm. No murmur heard. Normal peripheral pulses. ABDOMEN: Soft, nontender, nondistended, normal active bowel sounds. EXTREMITIES: Normal range of motion. No edema. SKIN: Warm, dry, no rash. NEURO: No focal deficits. Alert and oriented x3. Course Vital Signs Vital signs: Vital Signs Temperature 35.9 C L 11/20/20 17:09 Pulse Rate 103 H 11/20/20 17:09 Respiratory Rate 16 11/20/20 17:09 Blood Pressure 131/96 H 11/20/20 17:09 Pulse Oximetry 99 11/20/20 17:09 Temperature 35.9 C L 11/20/20 17:09 Pulse Rate 103 H 11/20/20 17:09 Respiratory Rate 16 11/20/20 17:09 Blood Pressure 131/96 H 11/20/20 17:09 Pulse Oxime
[2020-11-20 17:09] VITALS: BP 131/96; PULSE 103; RESP 16; TEMP 35.9; O2SAT 99
== END 2020-11-20 17:22 | disposition home or self-care (01) ==
PROVIDERS: Emergency Provider Nurse Practitioner Family
DX: H60.502 Unspecified acute noninfective otitis externa, left ear (principal); H61.23 Impacted cerumen, bilateral; F17.210 Nicotine dependence, cigarettes, uncomplicated; J45.909 Unspecified asthma, uncomplicated
CPT/HCPCS: 69210; 99213; A9270; G0463

== ENCOUNTER 2021-11-21 15:09 | Emergency (ER) | payer BC, SELFPAY ==
[2021-11-21 15:13] VITALS: BP 155/105; PULSE 104; RESP 17; TEMP 36.4; O2SAT 100
--- NOTE | 2021-11-21 16:12 | ED.EXTPRO ---
HPI - Extremity Problem General Chief complaint: Extremity Problem,Nontraumatic Stated complaint: R leg pain Time Seen by Provider: 11/21/21 16:01 Source: patient Mode of arrival: ambulatory Limitations: no limitations History of Present Illness HPI Narrative: Pt has a history of recurrent cellulitis of right leg. Pt states she started having redness and discomfort in right leg today and had some body aches as well. Pt is familiar with the condition and requests antibiotics only and no labs. MD Complaint: extremity pain Pain Consistency: constant Location: right and lower extremity Quality: burning Radiation: none Relieving factors: nothing Exacerbating factors: nothing Associated symptoms: myalgias Related Data Allergies Allergy/AdvReac Type Severity Reaction Status Date / Time Penicillins Allergy Severe Anaphylaxis Verified 11/21/21 15:20 Review of Systems Review of Systems: All systems reviewed & are unremarkable except as noted in HPI and below PMFSH Past Medical History Medical History (Updated 11/21/21 @ 16:19 by Peyton Hall III, DO) Asthma Recurrent cellulitis of lower extremity Right leg Tobacco dependence Surgical History Surgical History Status post debridement Right inner thigh 1 year ago Family History Family History Mother Hypertension Social History Social History Social History: The patient lives in [place] with her fianc?, Payton Fox. She designates Payton as her surrogate decision-maker and she wishes to be a full code. Zuleima works at a [employer]. She has no children. She has smoked half a pack of cigarettes per day for about 10 years. She denies alcohol and drug abuse. Years smoked: 10 Smoking status: Current every day smoker Tobacco type: cigarettes Alcohol intake: never Substance use: never Substance use type: does not use Additional living arrangements comments: Domestic partner Additional occupation/education comments: [employer] Gender identity (if verbalized by the patient): Female Spiritual care concerns: No Agree to blood products: Yes Exam Const: General: no acute distress Orientation/consciousness: patient oriented x3 Neck: Neck: normal visual inspection and no lymphadenopathy Resp: Effort & Inspection: normal respiratory effort Auscultation: clear to auscultation bilaterally Cardio: Rate: regular rate Rhythm: regular rhythm GI: GI Palp: Yes Soft to palpation Skin: Other: erythema to right leg and lower right thigh Neuro: General: patient oriented x3, moves all extremities, no meningeal signs, no focal motor deficits and CN's II-XI intact bilaterally Extrem: Other: see skin exam above Psych: Mental Status: mental status grossly normal Affect: normal affect Course Vital Signs Vital signs: Vital Signs Temperature 97.6 F 11/21/21 15:13 Pulse Rate 104 H 11/21/21 15:13 Respiratory Rate 17 11/21/21 15:13 Blood Pressure 155/105 H 11/21/21 15:13 Pulse Oximetry 100 11/21/21 15:13 Temperature 97.6 F 11/21/21 15:13 Pulse Rate 104 H 11/21/21 15:13 Respiratory Rate 17 11/21/21 15:13 Blood Pressure 155/105 H 11/21/21 15:13 Pulse Oximetry 100 11/21/21 15:13 Discharge Plan Discharge Clinical Impression: Cellulitis of right leg Patient Disposition: Home, Self-Care Condition: Stable Instructions: Antibiotic Form, Cellulitis (ED) Prescriptions: New clindamycin HCl 300 mg capsule 300 mg PO Q6H Qty: 40 RF: 0 No Action ofloxacin 0.3 % drops 10 drp EACH EAR DAILY PRN (Reason: infection) 7 Days Qty: 10 RF: 0 Follow-up/Referrals: Ekta Ribeiro [Other] Stand Alone Forms: Work/School Release IP
== END 2021-11-21 16:51 | disposition home or self-care (01) ==
PROVIDERS: Emergency Provider Emergency Medicine
DX: L03.115 Cellulitis of right lower limb (principal); J45.909 Unspecified asthma, uncomplicated; F17.210 Nicotine dependence, cigarettes, uncomplicated
CPT/HCPCS: 99283

== ENCOUNTER 2021-12-12 11:33 | Emergency (ER) | payer BC, SELFPAY ==
[2021-12-12 11:47] VITALS: BP 146/89; PULSE 86; RESP 20; TEMP 36.4; O2SAT 100
[2021-12-12 12:04] LABS: Hematocrit 45.9 % (37.0-47.0); Mean Corpuscular HGB Conc 32.7 g/dl (32-36); Mean Corpuscular Hemoglobin 31.1 pg (26-34); Mean Platelet Volume 9.8 fl (7.4-10.4); Platelet Count Result 312 k/mm3 (150-375); Red Blood Count 4.83 M/mm3 (4.2-5.4); Red Cell Distribution Width 14.6 % (11.5-14.5); White Blood Count 22.8 K/mm3 (4.5-10.0)
[2021-12-12 12:14] LABS: Alanine Aminotransferase 28 U/L (4-35); Albumin Level 4.3 g/dL (3.5-5.1); Alkaline Phosphatase 87 U/L (38-126); Anion Gap 10 mmol/L (8-16); Aspartate Amino Transferase 31 U/L (14-36); Bilirubin,Total 0.6 mg/dL (0.2-1.3); Blood Urea Nitrogen 15 mg/dL (7-17); Calcium 8.9 mg/dL (8.4-10.2); Carbon Dioxide 23 mmol/L (22-30); Chloride 105 mmol/L (98-107); Estimated CRCL calculation 133 ml/min; Estimated Glomerular Filt Rate > 60; Glucose 147 mg/dL (65-110); Lipase 83 U/L (23-300); Potassium 4.5 mmol/L (3.4-5.0); Sodium 138 mmol/L (137-145)
--- NOTE | 2021-12-12 12:16 | PC.NURSE ---
Patient states she is unable to try to provide urine sample at this time. [employer]
[2021-12-12 12:39] LABS: Band Neutrophils Percent 4 % (0-6); Eosinophils Absolute Manual 0.22 K/mm3 (0.02-0.5); Eosinophils Percent Manual 1 % (0-4); Lymphocytes Absolute Manual 1.59 K/mm3 (1.1-4.5); Monocytes Absolute Manual 1.14 K/mm3 (0.1-0.90); Monocytes Percent Manual 5 % (3-9); Neutrophils Absolute Manual 19.83 K/mm3 (1.7-7.2); Neutrophils Percent Manual 83 % (46-73); Total Cells Counted 100
[2021-12-12 12:40] LABS: Atypical Lymphocytes Present; Hypochromasia 1+ (NORMAL)
--- NOTE | 2021-12-12 12:44 | ED.NAVMDI ---
HPI - Nausea/Vomiting/Diarrhea General Chief complaint: Nausea/Vomiting/Diarrhea Stated complaint: N/V/D since this morning Time Seen by Provider: 12/12/21 12:33 Source: patient History of Present Illness HPI Narrative: Patient presents with nausea vomiting diarrhea. Symptoms started this morning progressively worse. She reports upper abdominal pain associated with vomiting is achy, intermittent, no radiation, occurs with vomiting. Denies any blood bile or melena. Reports outside lives with her has similar symptoms. She denies any recent antibiotics recent travel outside the area or drinking from streams. Related Data Allergies Allergy/AdvReac Type Severity Reaction Status Date / Time Penicillins Allergy Severe Anaphylaxis Verified 12/12/21 12:02 Review of Systems Review of Systems: CONSTITUTIONAL: Denies fever, chills, or sweats. EYES: Denies visual changes, redness, or discharge. ENT: Denies rhinorrhea, congestion, sore throat, or otalgia. CARDIOVASCULAR: Denies chest pain, palpitations, or edema. RESPIRATORY: Denies cough or dyspnea. GASTROINTESTINAL: Abdominal pain nausea vomiting diarrhea GENITOURINARY: Denies dysuria or hematuria. SKIN: Denies rash or itching. MUSCULOSKELETAL: Denies back pain, joint pain, or myalgia. NEUROLOGIC: Denies headache, numbness, dizziness, or weakness. PSYCHIATRIC: Denies anxiety or depression. All systems reviewed & are unremarkable except as noted in HPI and below PMFSH Past Medical History Medical History (Updated 12/12/21 @ 13:55 by Kyle Boyce MD) Asthma Recurrent cellulitis of lower extremity Right leg Tobacco dependence Surgical History Surgical History Status post debridement Right inner thigh 1 year ago Family History Family History Mother Hypertension Social History Social History Social History: The patient lives in [place] with her fianc?, Payton Fox. She designates Payton as her surrogate decision-maker and she wishes to be a full code. Zuleima works at a local [employer]. She has no children. She has smoked half a pack of cigarettes per day for about 10 years. She denies alcohol and drug abuse. Years smoked: 10 Smoking status: Current every day smoker Tobacco type: cigarettes Alcohol intake: never Substance use: never Substance use type: does not use Additional living arrangements comments: Domestic partner Additional occupation/education comments: [employer] Gender identity (if verbalized by the patient): Female Spiritual care concerns: No Agree to blood products: Yes Exam Narrative: GENERAL: Well-appearing, well-nourished, and in no acute distress. HEAD: Normocephalic, atraumatic. EYES: PERRLA and EOMI. ENT: Nares clear, no rhinorrhea or epistaxis. Mucous membranes moist. NECK: Supple. No masses. No JVD ABDOMEN: Minimal pain with deep palpation upper abdomen soft, nondistended, normal active bowel sounds. EXTREMITIES: Normal range of motion. No edema. SKIN: Warm, dry, no rash. NEURO: No focal deficits. Alert and oriented x3. PSYCH: Normal mood and affect. Course Reevaluation(s) Reevaluation #1: Patient reports feeling much improved. Results and plan reviewed with patient. Patient comfortable outpatient plan. Date: 12/12/21 Time: 13:52 Vital Signs Vital signs: Vital Signs Temperature 36.4 C 12/12/21 11:47 Pulse Rate 86 12/12/21 11:47 Respiratory Rate 20 12/12/21 11:47 Blood Pressure 146/89 H 12/12/21 11:47 Pulse Oximetry 100 12/12/21 11:47 Temperature 36.4 C 12/12/21 11:47 Pulse Rate 89 12/12/21 14:12 Respiratory Rate 16 12/12/21 14:12 Blood Pressure 113/79 12/12/21 14:12 Pulse Oximetry 98 12/12/21 14:12 MDM - Nausea/Vomiting/Diarrhea MDM Narrative Medical decision making narrative: H&P as above
[2021-12-12] MEDS: DICYCLOMINE HCL 10 MG CAPSULE 20 MG PO (12:45)
[2021-12-12] MEDS: SODIUM CHLORIDE 0.9% IV 1,000 ML 999 ML IV CONT (12:45)
[2021-12-12] MEDS: ONDANSETRON INJ 4 MG/2 ML VIAL IV PUSH (12:45)
[2021-12-12 14:12] VITALS: BP 113/79; PULSE 89; RESP 16; O2SAT 98
== END 2021-12-12 14:18 | disposition home or self-care (01) ==
PROVIDERS: Emergency Medicine; Emergency Provider Emergency Medicine
DX: R11.2 Nausea with vomiting, unspecified (principal); R19.7 Diarrhea, unspecified; R10.9 Unspecified abdominal pain; J45.909 Unspecified asthma, uncomplicated; F17.210 Nicotine dependence, cigarettes, uncomplicated
CPT/HCPCS: 36415; 80053; 83690; 85025; 96361; 96374; 99284; A9270; J2405; J7030